=== PATIENT | female | born 1940 | race Two or more races ===

== ENCOUNTER 2022-01-17 10:04 | Emergency (ER) | payer OTHER ==
[~2022-01-17] VITALS: Ht 154.9 cm; Wt 79.5 kg
[2022-01-17] MEDS ORDERED: ALBU108A5 IN (14:54)
[2022-01-17] MEDS ORDERED: PRE5T PO (14:54)
[2022-01-17] MEDS ORDERED: AZIT250T9 PO (14:54)
[2022-01-17 15:00] VITALS: BP 126/72
== END 2022-01-17 15:09 | disposition home or self-care (01) ==
LOC: ER 10:04
DX: U07.1 COVID-19 (principal); I10 Essential (primary) hypertension
CPT/HCPCS: 36415; 71045